=== PATIENT | male | born 1945 | race Caucasian/White ===

== ENCOUNTER 2020-07-05 02:07 | Outpatient (CLI) | payer OTHER, SELFPAY ==
[2020-07-05 12:46] LABS: FREE T4 0.72 ng/dL (0.76-1.46); TSH 0.69 uIU/mL (0.36-3.74)
== END 2020-07-05 02:08 | disposition home or self-care (01) ==
LOC: LBO 02:07
DX: E03.9 Hypothyroidism, unspecified (principal)
CPT/HCPCS: 36415; 84439; 84443

== ENCOUNTER 2020-08-23 10:28 | Outpatient (CLI) | payer OTHER, SELFPAY ==
--- NOTE | 2020-08-23 08:50 | DI.RAD_ITS ---
EXAM: XR KNEE RT 4V AP,LAT,SERG,PAT CLINICAL HISTORY: rt knee pain. TECHNIQUE: 2D digital imaging was performed. COMPARISON: No exams were available for comparison FINDINGS: There is no acute fracture or dislocation. The bones are normally mineralized. There is mild narrow ing of the medial lateral femoral tibial joints. Mild spurring is seen at the posterior patella enth esophytes are seen anteriorly at the patella. No suspicious lytic or sclerotic lesions are seen. So ft tissues are grossly unremarkable. IMPRESSION: Mild degenerative changes of the right knee. DATA REPOSITORY: RADIATION DOSE DELIVERED:
== END 2020-08-23 10:29 | disposition home or self-care (01) ==
LOC: DIORS 10:29
PROVIDERS: Visit Provider Student in an Organized Health Care Education/Training Program
DX: M25.561 Pain in right knee (principal); M17.11 Unilateral primary osteoarthritis, right knee; M23.91 Unspecified internal derangement of right knee
CPT/HCPCS: 99203; 73564

== ENCOUNTER 2021-07-19 03:44 | Outpatient (CLI) | payer MEDICARE, SELFPAY ==
[2021-07-19 14:06] LABS: FREE T4 0.72 ng/dL (0.76-1.46); TSH 4.52 uIU/mL (0.36-3.74)
[2021-07-19 23:02] LABS: T3,Free 5.4 pg/mL (2.8-5.3)
== END 2021-07-19 03:45 | disposition home or self-care (01) ==
LOC: LBO 03:45
DX: E03.9 Hypothyroidism, unspecified (principal)
CPT/HCPCS: 36415; 84439; 84443; 84481

== ENCOUNTER 2024-08-02 11:30 | Emergency (ER) | payer MEDICARE, SELFPAY ==
[2024-08-02] VITALS (43 sets, daily range): BP systolic 115–182; BP diastolic 51–97; PULSE 48–64; RESP 12–27; TEMP 36.4; O2SAT 90–99
--- NOTE | 2024-08-02 11:30 | RT.EKG_ITS ---
APPROVED REPORT Exam: Resting ECG Reason for Exam: left arm pain, jaw pain Patient Location: E HR:46 bpm ECG Measurements Heart Rate 46 AXIS TX 196 P 59 QRSd 156 QRS -31 QT 475 T 5 QTc 418 Conclusion Sinus bradycardia 46 RBBB no stemi
--- NOTE | 2024-08-02 11:30 | DI.RAD_ITS ---
Exam(s) XR PORTABLE CHEST AP EXAM: XR PORTABLE CHEST AP CLINICAL HISTORY: Chest pain TECHNIQUE: 2D digital imaging was performed of the chest. One image was obtained. An AP view was ob tained. COMPARISON: CR LEFT CLAVICLE LTD from 10/09/2014 FINDINGS: MEDIASTINUM: Normal. HEART: Normal. PULMONARY VASCULATURE: Normal. LUNGS: Clear. PLEURAL SPACE: No pleural effusion or pneumothorax. BONE:Within normal limits for the patient's age. There is an S-type scoliosis of the thoracic spine. Sideplate and screws are again seen in the left clavicle. OTHER FINDINGS:Normal. IMPRESSION: No acute pulmonary findings. DATA REPOSITORY: RADIATION DOSE DELIVERED:
[2024-08-02] MEDS: Aspirin 81 MG CHEW 324 MG CH (11:43)
[2024-08-02] MEDS: nitroGLYcerin 0.4 MG TAB SL ×4 (11:54→15:37)
[2024-08-02 11:55] LABS: Abs Immature Grans 0.03 10^3/uL (0.0-0.06); Absolute Basophil Count 0.04 10^3/uL (0.0-0.2); Absolute Eosinophil Count 0.09 10^3/uL (0.0-0.7); Absolute Lymphocyte Count 1.26 10^3/uL (1.2-3.4); Absolute Monocyte Count 0.61 10^3/uL (0.1-0.8); Absolute Neutrophil Count 6.62 10^3/uL (1.2-6.7); Basophils % 0.5 %; HCT 44.2 % (40.0-50.0); HGB 15.4 g/dL (13.5-17.5); Immature Grans % 0.3 %; Lymphocytes % 14.6 %; MCH 31.4 pg (27.0-33.0); MCHC 34.8 % (32.0-36.0); MCV 90 fL (80-95); MPV 9.7 fL (8.0-11.0); Monocytes % 7.1 %; Neutrophils % 76.5 %; Platelet Count 241 10^3/uL (130-400); RDW 13.2 % (11.8-14.1); RDW-SD 44.1 fL; WBC 8.65 10^3/uL (4.4-10.8)
--- NOTE | 2024-08-02 12:00 | RT.EKG_ITS ---
APPROVED REPORT Exam: Resting ECG Reason for Exam: chest pain Patient Location: E HR:47 bpm ECG Measurements Heart Rate 47 AXIS ID 182 P 43 QRSd 160 QRS -18 QT 466 T 7 QTc 410 Conclusion sinus bradycardia 47 RBBB
[2024-08-02 12:13] LABS: INR 1.1 (0.9-1.1); PTT Activated 23.6 sec (20.6-30.2); Prothrombin Time 10.6 sec (9.1-11.1)
[2024-08-02 12:22] LABS: ALT 25 U/L (16-63); AST 23 U/L (15-37); Albumin 3.9 g/dL (3.4-5.0); Alkaline Phosphatase 52 U/L (46-116); Anion Gap 7.9 mmol/L (3-11); BUN 11 mg/dL (7-18); Bilirubin, Total 1.2 mg/dL (0.2-1.0); CO2 30.1 mmol/L (21.0-32.0); CREATININE 0.9 mg/dL (0.70-1.30); Calcium 9.2 mg/dL (8.5-10.1); Chloride 100 mmol/L (98-107); Estimated GFR 86.88 (mL/min/1.73m2); Glucose 122 mg/dL (74-106); Lipase 47 U/L (<78); NT-proBNP 119 pg/mL (<300); Sodium 138 mmol/L (136-145); Total Protein 7.4 g/dL (6.4-8.2); Troponin I 52 ng/L (<or=76)
--- NOTE | 2024-08-02 13:05 | ED.GENADUL_ITS ---
Discharge Plan Disposition Patient Disposition: Transfer-Acute Inpatient Care Specific Acute Inpt Facility: [facility] Condition: Serious Discharge Details Chief Complaint: GenMedical Clinical Impression: Acute non-ST elevation myocardial infarction (NSTEMI), Bradycardia Primary Care Provider: Unknown,Unknown ED Provider: Marcia Fall Home Meds and New Rx's Prescriptions: No Action cholecalciferol (vitamin D3) [Vitamin D3] 1,000 UNIT tablet,chewable 1,000 unit PO DAILY thyroid (pork) [[place] Thyroid] 90 MG tablet 90 mg PO QAM clobetasol 15 GM ointment 1 ea Topical PRN PRN HPI General Date/Time Provider Initiated Documentation: 08/02/24 11:37 . Limitations to Documentation: no limitations . Information obtained by: patient . HPI Narrative: 79-year-old gentleman with out significant past medical history presents for evaluation of not feeling right. 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 He states that he does this every weekend and normally does not have any issues with it. He states that he just was not feeling well. States that he just feels weird in his head. Denies any headache visual change. He reports some mild nausea and stomach upset. He reports some pain in the left side of his jaw and pain under his left axilla. He denies any shortness of breath. He denies any cardiac history. He states that years ago he did have an EKG that demonstrated a right bundle branch block. He does not smoke. Or have diabetes. Related Data Home Medications ?Medication ?Instructions ?Recorded ?Confirmed thyroid (pork) 90 mg tablet 90 mg PO QAM 07/19/14 08/02/24 ([place] Thyroid) clobetasol 0.05 % topical ointment 1 ea topical PRN PRN 07/23/14 08/02/24 cholecalciferol (vitamin D3) 25 1,000 unit PO DAILY 06/14/16 08/02/24 mcg (1,000 unit) chewable tablet (Vitamin D3) Allergies Allergy/AdvReac Type Severity Reaction Status Date / Time No Known Allergies Allergy Verified 08/02/24 11:47 General Stated Complaint: GenMedical PADMINI: 3 Exam Narrative Exam Narrative: Review of Systems: All systems reviewed & are unremarkable except as noted in HPI and below Well-developed, no acute distress NCAT PERRL, normal conjunctiva Bradycardic no murmur Unlabored respiratory effort clear bilaterally no crackles Nondistended abdomen soft nontender Extremities w/o edema Left axilla without any skin changes or tenderness to palpation no focal neurologic deficits Course Vital Signs Vital signs: Vital Signs Temperature 36.4 C 08/02/24 11:34 Pulse 50 L 08/02/24 11:34 Respiratory Rate 18 08/02/24 11:34 Blood Pressure 180/61 H 08/02/24 11:34 Pulse Oximetry 96 08/02/24 11:34 Temperature 36.4 C 08/02/24 11:34 Pulse 52 L 08/02/24 12:31 Pulse 52 L 08/02/24 12:31 Respiratory Rate 16 08/02/24 12:31 Respiratory Effort Normal 08/02/24 12:27 Respiratory Depth Normal 08/02/24 12:27 Respiratory Pattern Normal 08/02/24 12:27 Blood Pressure 115/58 L 08/02/24 12:31 Blood Pressure Mean 78 08/02/24 12:31 Pulse Oximetry 97 08/02/24 12:31 Pain Level 4 08/02/24 12:27 Lab/Test Results Lab/Test Results: Laboratory Tests Range/Units 08/02/24 11:45 WBC (4.4-10.8) 10^3/uL 8.65 RBC (4.36-5.78) 10^6/uL 4.90 Hgb (13.5-17.5) g/dL 15.4 Hct (40.0-50.0) % 44.2 MCV (80-95) fL 90 MCH (27.0-33.0) pg 31.4 MCHC (32.0-36.0) % 34.8 RDW (11.8-14.1) % 13.2 Plt Count (130-400) 10^3/uL 241 MPV (8.0-11.0) fL 9.7 Immature Gran % % 0.3 Neutrophils % % 76.5 Lymphocytes % % 14.6 Monocytes % % 7.1 Eosinophils % % 1.0 Basophils % % 0.5 Nucleated RBC % (0.0-0.3) % 0.0 Absolute Neutrophils (1.2-6.7) 10^3/uL 6.62 Absolute Lymphocytes (1.2-3.4) 10^3/uL 1.26 Absolute Monocytes (0.1-0.8) 10^3/uL 0.61 Absolute Eosinophils (0.0-0.7) 10^3/uL 0.09 Absolute Basophils (0.0-0.2) 10^3/uL 0.04 PT (9.1-11.1) sec 10.6 INR (0.9-1.1) 1.1 APTT (20.6-30.2) sec 23.6 Sodium (136-145) mmol/L 138 Potassium (3.5-5.1) mmol/L 4.0 Chloride (98-107) mmol/L 100 Carbon Dioxide (21.0-32.0) mmol/L 30.1 Anion Gap (3-11) mmol/L 7.9 BUN (7-18) mg/dL 11 Creatinine (0.70-1.30) mg/dL 0.9 Est GFR (CKD-EPI 2020) (mL/min/1.73m2) 86.88 Glucose (74-106) mg/dL 122 H Calcium (8.5-10.1) mg/dL 9.2 Total Bilirubin (0.2-1.0) mg/dL 1.2 H AST (15-37) U/L 23 ALT (16-63) U/L 25 Alkaline Phosphatase (46-116) U/L 52 Troponin I (<or=76) ng/L 52 NT-Pro-B Natriuret Pep (<300) pg/mL 119 Total Protein (6.4-8.2) g/dL 7.4 Albumin (3.4-5.0) g/dL 3.9 Lipase (<78) U/L 47 Medical Decision Making Emergent evaluation of some vague not feeling well complaints. Although the patient does not have any very specific symptoms, the overall constellation of symptoms is very concerning for a cardiac etiology. He has noted to be b radycardic on arrival, but does not have history in the computer system and no prior EKGs are available to review. He is not on any medication that would cause bradycardia. His EKG does demonstrate a right bundle branch block with some nonspecific ST changes, no reciprocal change no acute STEMI. He was placed on telemetry monitoring. Will get cardiac workup including serial troponins, give aspirin and nitroglycerin to relieve the jaw and axilla pain. 1215 Patient has received 3 doses of nitroglycerin and reports resolution of all of his symptoms. Repeat EKG demonstrates persistent bradycardia, there may be some worsening in the ST depressions though no significant change from prior is noted. First troponin is negative. Given the EKG abnormalities symptoms and resolution with nitroglycerin I have reached out to [facility] cardiology for consultation. 1300 Second troponin has trended up to +127. Given this delta, we will treat this as NSTEMI, start heparin infusion, Plavix load, high-dose statin. Patient remains pain-free. 1345 Discussed with [facility] cardiology and they are also concerned for NSTEMI and concur with my plan of care. They have accepted the patient for transfer, pending bed availability which should be today.Accepting physician, Dr Sheldon. Quality:[facility] Health Related Social Needs: No Data to Display Critical Care Time Critical Care Time Critical Care Time: Yes Total Critical Care Time: 38 Attestation: CRITICAL CARE Upon my evaluation, this patient had a high probability of imminent or life- threatening deterioration due to NSTEMI, bradycardia which required my direct attention, intervention, and personal management. I have personally provided 38 minutes of critical care time exclusive of time spent on separately billable procedures. Time includes review of laboratory data, radiology results, discussion with consultants, and monitoring for potential decompensation. Interventions were performed as documented above [facility] All Active Problems (Updated 08/02/24 @ 14:05 by Marcia Fall MD) Bradycardia (Acute) Acute non-ST elevation myocardial infarction (NSTEMI) (Acute) Internal derangement of right knee (Acute) Osteoarthritis of right knee (Acute) Exostosis of both external auditory canals (Acute 08/10/16) Sensorineural hearing loss, bilateral (Acute 07/03/13) Tinnitus (Acute 07/03/13) Tinnitus, bilateral (Acute 08/10/16) Social History Smoking/Tobacco Use Status: Never Smoking risk assessment performed?: Yes Alcohol Intake: never Drug use: Never Substance use type: does not use
--- NOTE | 2024-08-02 13:12 | DI.VRAD_ITS ---
PROCEDURE INFORMATION: Exam: XR Chest Exam date and time: 08/02/2024 12:27 PM Age: 79 years old Clinical indication: Pain; Chest pressure TECHNIQUE: Imaging protocol: Radiologic exam of the chest. Views: 1 view. COMPARISON: No relevant prior studies available. FINDINGS: Lungs: Unremarkable. No consolidation. Pleural spaces: Unremarkable. No pleural effusion. No pneumothorax. Heart/Mediastinum: Unremarkable. No cardiomegaly. Bones/joints: Internal fixation left clavicle. IMPRESSION: No acute findings. Dictated and Authenticated by: Triny Jones MD. Orderin Juan David Yoo MD
[2024-08-02 13:25] LABS: Troponin I 127 ng/L (<or=76)
[2024-08-02] MEDS: Clopidogrel 300 MG TAB 600 MG PO (13:45)
[2024-08-02] MEDS: Heparin in 0.45% NaCl 25,000 UNIT/250 ML BAG 8.5 UNIT IVINF (13:45)
[2024-08-02] MEDS: Atorvastatin 40 MG TAB 80 MG PO (13:45)
[2024-08-02 15:09] LABS: Troponin I 486 ng/L (<or=76)
== END 2024-08-02 16:17 | disposition short-term general hospital (02) ==
PROVIDERS: Emergency Provider Emergency Medicine
DX: I21.4 Non-ST elevation (NSTEMI) myocardial infarction (principal); R79.89 Other specified abnormal findings of blood chemistry; R00.1 Bradycardia, unspecified; I45.19 Other right bundle-branch block
CPT/HCPCS: 36415; 80053; 83690; 93005; 99285; 71045; 83880; 84484; 85025; 85610; 85730; 93010; J1644